=== PATIENT | male | born 2000 | race Caucasian/White ===

== ENCOUNTER 2024-10-02 09:19 | Emergency (ER) | payer OTHER, SELFPAY ==
--- NOTE | ~2024-10-02 | XR_ITS ---
EXAMINATION: XR THUMB, LEFT CLINICAL INFORMATION: lac to base of left thumb COMPARISON: None available. TECHNIQUE: PA view of the left hand.. Oblique and lateral views, left thumb. FINDINGS: No acute cortical disruption. No gross malalignment. No lytic or blastic lesions. Punctate radiopaque foreign body beneath the skin at the metacarpophalangeal joint space seen on the lateral projection.. No gross subcutaneous emphysema. The carpal bones are intact with normal alignment. The phalanges of the digits are intact with normal alignment. Distal radius and ulna are intact. XR/XR finger LT min 2V IMPRESSION: No acute fracture or dislocation. Probable punctate radiopaque foreign bodies beneath the skin overlapping the metacarpophalangeal joint first digit. Electronically signed by: Toi Rolle MD 10/02/2024 10:26 AM EDT
[2024-10-02 09:28] VITALS: BP 124/62; PULSE 67; RESP 18; TEMP 36.8; O2SAT 99; BMI 28.5
--- NOTE | 2024-10-02 10:06 | ED_ITS ---
HPI - Wound/Laceration General Chief Complaint: Wound/Laceration Stated Complaint: Finger Lac Time Seen by Provider: 10/02/24 10:01 Source: patient Mode of arrival: ambulatory Limitations: no limitations History of Present Illness ED Provider: PRATEEK COHN PA-C HPI narrative: 24 year old patient presents to the ED today for evaluation of laceration to left thumb sustained prior to arrival. Reports cutting metal using a cut off wheel on a head grinder when the blade broke and flung back, causing a laceration at the base of his left thumb. Unsure if there are retained foreign bodies. He states he is able to move the entire thumb. Reports 5/10 pain. Bleeding controlled on arrival. He is not on anticoagulation. States last tetanus was over 10 years ago. No other concerns at present. Related Data Previous Rx's ?Medication ?Instructions ?Recorded amoxicillin 875 mg-potassium 1 tab PO Q12H 7 days #14 tabs 10/02/24 clavulanate 125 mg tablet Allergies Allergy/AdvReac Type Severity Reaction Status Date / Time No Known Allergies Allergy Verified 10/02/24 09:32 Review of Systems Review of Systems: Yes all other systems are reviewed and are negative FORMERLY [facility], [facility] Past Medical History Attestation statement: The following information was validated with the patient. Source: old records reviewed and nursing notes reviewed Physical Exam Vital Signs: Vital Signs: Last Vital Signs Temp 98.3 F 10/02/24 11:15 Pulse 67 10/02/24 11:15 Resp 18 10/02/24 11:15 BP 124/62 10/02/24 11:15 Pulse Ox 99 10/02/24 11:15 O2 Del Method Room Air 10/02/24 11:15 BMI result Body Mass Index 28.5 Vital signs stable General: Well appearing, in no acute distress. Skin: See below Head: Normocephalic, atraumatic. EENT: Hearing is intact b/l. Conjunctiva clear. PERRLA. EOM intact. Moist mucous membranes.? Cardiac: Chest wall symmetric. RRR Lungs: Normal respiratory effort without accessory muscle use. CTA bilaterally Back: No midline spinous or paraspinal tenderness. No step off deformity. Ext: +2 cm superficial linear laceration noted to base of left 1st digit along MCP. Deeper structures intact. Finger strength intact. Full ROM noted to entire digit including MCP and DIP. Sensation intact. 2+ radial pulse intact. Neuro: AOx3. Normal speech. Ambulating with steady gait. Course Course Course Narrative: On exam, patient has full strength and range of motion to left 1st digit. I do not have concern for tendon or ligament injury. No obvious deformity to indicate fracture. X-ray of left 1st digit does not reveal acute fracture or dislocation. There are probable punctate radiopaque foreign bodies beneath the skin overlapping with the MCP joint. I discussed laceration repair and digital nerve block with patient. Agreeable to procedure. We irrigated the laceration extensively. No identifiable foreign body however punctate foreign bodies visualized on x-ray. Laceration well irrigated with saline and iodine. My PA student Luiz repaired laceration and performed digital nerve block with patient's consent. Laceration repaired with a total of 4 3-0 nylon sutures. Bleeding controlled. Patient tolerated procedure well. No complications. Given possible foreign body, will place patient on Augmentin for prophylactic treatment. Tdap updated today. Advised to return to the ED or follow up with PCP in 10-14 days for suture removal. Patient has remained stable throughout ED visit today. Discussed worrisome signs and symptoms and when to return to the ED. All questions answered at this time. Patient is agreeable with disposition and stable for discharge. Medications Administered Discontinued Medications Generic Name Dose Route Start Last Admin Trade Name Freq PRN Reason Stop Dose Admin Diphtheria/Tetanus/Acell Pertussis 0.5 ml 10/02/24 10:06 10/02/24 10:17 Diphth,Pertus(Acell),Tet Adult 0.5 Ml Syringe IM 10/02/24 10:07 0.5 ml .ONCE ONE Administration Lidocaine HCl 5 ml 10/02/24 10:07 10/02/24 10:17 Lidocaine Hcl 1 % Mpf 5 Ml Vial INFILTRATI 10/02/24 10:08 5 ml ONCE ONE Administration Medical Decision Making Medical Decision Making MDM Narrative: 24 year old patient presents to the ED today for evaluation of laceration to left thumb sustained prior to arrival. Signs stable. On exam, there is a 2 cm superficial linear laceration noted to base of left 1st digit along MCP. Deeper structures intact. Finger strength intact. Full ROM noted to entire digit including MCP and DIP. Sensation intact. 2+ radial pulse intact. Differential diagnosis includes laceration, abrasion. I do not have suspicion for ligament or tendon injury given physical exam findings. Question retained foreign body. I also considered fracture. Plan for x-rays, Tdap booster, irrigation and laceration repair. Differential Diagnosis Differential Diagnoses: The differential diagnosis associated with the presentation includes As above Admission/Observation Not indicated Independent Interpretation I performed an independent interpretation of an: Plain X-Ray Interpretation: X-ray of left 1st digit showing punctate foreign bodies along the radial aspect of the left 1st MCP. Radiology Impression Discussion of test interpretation with radiology: I have reviewed the radiologist's reading. Radiologist Impression: Procedure(s): XR finger LT min 2V Accession Number(s): [id number] cc: Physician,None ; Prateek Cohn PA~ EXAMINATION: XR THUMB, LEFT CLINICAL INFORMATION: lac to base of left thumb COMPARISON: None available. TECHNIQUE: PA view of the left hand.. Oblique and lateral views, left thumb. FINDINGS: No acute cortical disruption. No gross malalignment. No lytic or blastic lesions. Punctate radiopaque foreign body beneath the skin at the metacarpophalangeal joint space seen on the lateral projection.. No gross subcutaneous emphysema. The carpal bones are intact with normal alignment. The phalanges of the digits are intact with normal alignment. Distal radius and ulna are intact. XR/XR finger LT min 2V IMPRESSION: No acute fracture or dislocation. Probable punctate radiopaque foreign bodies beneath the skin overlapping the metacarpophalangeal joint first digit. Electronically signed by: Toi Rolle MD 10/02/2024 10:26 AM EDT Prescription Management I considered prescription management with: Pain Medication and Antibiotic (Augmentin) Social Determinants Patient?s care significantly limited by Social Determinants of Health including: Other Social Determinant of Health Procedures Laceration Laceration 1: Site: hand (Base of thumb) Side (If applicable): left Size (cm): 2 Description: linear Depth: simple, single layer Local Anesthetic: lidocaine 1% Amount of anesthesia used (mL): 5 Pre-repair: wound explored, irrigated extensively, deep structures intact and extensive debridement Skin layer closed with: nylon Size (cm): 3-0 Number of sutures: 4 Technique: simple, interrupted Nerve Block Nerve Block 1: Time out performed: Yes Local Anesthetic: lidocaine 1% Amount of anesthesia used (mL): 5 Side: left Nerve Blocks: digital (1st digit) Procedure Successful: Yes Patient Tolerated Procedure: well Complications: none Critical Care Time Critical Care Time Critical Care Time: No Discharge Plan Discharge Clinical Impression: Laceration of thumb Patient Disposition: Home, Self-Care Instructions: Care For Your Stitches (ED), Laceration (ED) Additional Instructions: You have been evaluated in the Emergency Department today for a laceration to your left thumb. Your laceration was repaired in the ED with 4 sutures.? Your tetanus vaccination was also updated and will be valid for 5-10 years. Please keep the area surrounding the laceration clean and dry. Do not get the area wet for 24 hours. After 24 hours, you may clean the area with a nonscented soap and pat to dry. Please keep the area out of the sunlight for the next 6 months to help prevent scarring.? If you develop redness or swelling at the site of your laceration or note any discharge/ fluid coming from the laceration, please come back to the ER for a wound check. I recommend you take 600mg ibuprofen every 6 hours or tylenol 650mg every 6 hours as needed for pain. If needed, you can alternate these medications so that you take one medication every 3 hours. For example, at noon take ibuprofen, then at 3pm take tylenol, then at 6pm take ibuprofen. I am also placing you on a prophylactic antibiotic called Augmentin. Take this as prescribed. Please follow up with your primary care physician in 10-14 days for suture removal. If you presents to the ED between the hours of 11:00 a.m. and 9:00 p.m., we do have a provider in the triage area that can remove these for you. You may also return to the ER or another urgent care facility for this service. Return to the Emergency Department if you experience discharge from your laceration, redness around your laceration, warmth around your laceration, fever, vomiting, numbness, tingling, or any other concerning symptoms. In the case of an emergency call 911. Prescriptions: New amoxicillin-pot clavulanate 875-125 mg tablet 1 tab PO Q12H 7 Days Qty: 14 0RF Referrals: Physician,None [Primary Care Provider] - Interventions: ED Discharge Assessment Last Done: 10/02/24 11:15 Discharge Date/Time: 10/02/24 11:19 Print Language: Burmese
[2024-10-02] MEDS: Diphth,Pertus(ACell),Tet Adult 0.5 ML SYRINGE IM (10:17)
[2024-10-02] MEDS: Lidocaine HCl 1 % MPF 5 ML VIAL INFILTRATI (10:17)
[2024-10-02 11:15] VITALS: BP 124/62; PULSE 67; RESP 18; TEMP 36.8; O2SAT 99
--- OUTSIDE RECORDS SUMMARY | 2024-10-02 11:17 | XMS_ITS | Clinical Summary ---
Author Organization [facility] Address [address] [id number] Phone Care Team Providers Care High Density Talc Coater Operator Name Role Phone Dyllan Cox MD Primary Care Provider [phone] Immunizations Immunization Administration Dates Next Due DTaP 5 05/19/2003, 1,1999, 000,1999 HPV Vaccine 9 Valent 07/30/2015 HPV, Quadrivalent 01/10/2014 Hep B, ped/adol 06/04/2004,02/27/2004,10/17/2003 Hib (HbOC) 07/13/2000, 0,1999, 000 IPV 05/19/2003, 1,1999, 000 MMR 06/04/2004,07/13/2000 Meningococcal Conj (Menactra) MCV4P 07/30/2015,0 09/12/2011 Pneumococcal Conjugate 07/13/2000,04/13/2000,10/1999 Tdap 09/12/2011 Varicella 09/10/2010,07/13/2000 Social History Tobacco Use Types Packs/Day Years Used Date Smoking Tobacco: Never Comments:Never Smoker Sex and Gender Information Value Date Recorded Sex Assigned at Not on file Legal Sex Male 4:05 PM EST Gender Identity Not on file Sexual Orientation Not on file Last Filed Vital Signs Vital Sign Reading Time Taken Comments Blood Pressure 117/70 01/10/2014 8:51 AM EDT Pulse 88 08/01/2016 3:47 PM EST Temperature - - Respiratory Rate - - Oxygen Saturation - - Inhaled Oxygen Concentration - - Weight 68 kg (150 lb) 08/01/2016 3:47 PM EST Height 178.4 cm (5' 10.25 ) 08/01/2016 3:[address] Body Mass Index 21.37 08/01/2016 3:47 PM EST Plan of Treatment Health Maintenance Due Date Last Done Comments DTaP,Tdap,and Td Vaccines (7 - Td or Tdap) 09/11/2021 09/12/2011, 05/19/2003, 10/11/2000, Additional history exists Influenza Vaccines (#1) 2023 COVID-19 Vaccine ( season) 2024 HIB Vaccines Completed 07/13/2000, 11/1999, 1999, Additional history exists Pneumococcal Vaccine Completed 07/13/2000, 04/13/2000, 02/02/2000 IPV Vaccines Completed 05/19/2003, 09/26, 1999, Additional history exists Hepatitis B Vaccines Completed 06/04/2004, 02/27/2004, 10/17/2003 MMR Vaccines Completed 06/04/2004, 07/13/2000 Varicella Vaccines Completed 09/10/2010, 07/13/2000 HPV Vaccines Completed 07/30/2015, 01/10/2014 Meningococcal Vaccine Completed 07/30/2015, 012 Hepatitis A Vaccines Aged Out No long er eligible based on patient's age to complete this topic Men B Vaccine Aged Out No longer elig ible based on patient's age to complete this topic Care Teams High Density Talc Coater Operator Relationship Specialty Start Date End Date Dyllan Cox MD [address] [place] [address] [address] [place] [address] PCP - General 07/18/16
--- OUTSIDE RECORDS SUMMARY | 2024-10-02 11:17 | XMS_ITS | Clinical Summary ---
Author Organization [facility] Address [address] [address] Phone Care Team Providers Care Caisson Worker Name Role Phone Pcp, Unknown Primary Care Provider Unavailabl e Allergies No known active allergies Medications Medication Sig Dispensed Refills Start Date End Date Status cyclobenzaprine (FLEXERIL) 10 MG tablet Take 1 tablet (10 mg total) by mouth 3 (three) times a day as needed. 15 tablet 01/28/2021 Active Social History Tobacco Use Types Packs/Day Years Used Date Smoking Tobacco: Never Smokeless Tobacco: Never Alcohol Use Standard Drinks/Week Comments Yes 0 (1 standard drink = 0.6 oz pur e alcohol) occassional Education Answer Date Recorded Are you interested in more education? Not on romelia e 09/23/2022 Are you concerned about learning? Not on file 09/23/2022 No 09/23/2022 No 09/23/2022 Digital Access Answer Date Recorded No 10/24/2022 No 10/24/2022 No 10/24/2022 Reliable internet access at home? Not on file 10/24/2022 Device with a working camera? Not on file Sex and Gender Information Value Date Recorded Sex Assigned at Male 01/28/2021 3:29 PM EDT Gender Identity Male 01/28/2021 3:29 PM EDT Sexual Orientation Not on file Last Filed Vital Signs Vital Sign Reading Time Taken Comments Blood Pressure 127/82 01/28/2021 3:27 PM EDT Pulse 66 01/28/2021 3:27 PM EDT Temperature 36.6 ??C (97.9 ??F) 01/28/2021 3:27 PM ED T Respiratory Rate 16 01/28/2021 3:27 PM EDT Oxygen Saturation 100% 01/28/2021 3:27 PM EDT Inhaled Oxygen Concentration - - Weight 72.6 kg (160 lb) 01/28/2021 3:27 PM EDT Height 182.9 cm (6') 01/28/2021 3:27 PM EDT Body Mass Index 21.7 01/28/2021 3:27 PM EDT Plan of Treatment Not on file Medical Devices Not on file Care Teams Caisson Worker Relationship Specialty Start Date End Date Pcp, Unknown PCP - General 01/28/21 Additional Source Comments The information contained in this document represents components of the legal health record. It is not the complete legal health record.[facility]
== END 2024-10-02 11:19 | disposition home or self-care (01) ==
PROVIDERS: Emergency Provider Emergency Medicine
DX: S61.012A Laceration without foreign body of left thumb without damage to nail, initial encounter (principal); M79.642 Pain in left hand; W26.0XXA Contact with knife, initial encounter; Y93.9 Activity, unspecified; Y92.000 Kitchen of unspecified non-institutional (private) residence as the place of occurrence of the external cause; Y99.8 Other external cause status; Z23 Encounter for immunization
CPT/HCPCS: 12041; 73140; 90471; 90715; 99282; 99284; J2003

== ENCOUNTER → 2024-10-02 10:11 | Outpatient (BNV) | payer OTHER, SELFPAY | PROVIDERS: Emergency Provider Emergency Medicine; Visit Provider Radiology Diagnostic Radiology | DX: S61.012A Laceration without foreign body of left thumb without damage to nail, initial encounter (principal) | CPT/HCPCS: 73140 ==